=== PATIENT | female | born 1965 | race Caucasian/White ===

== ENCOUNTER 2020-08-09 04:39 | Emergency (ER) | payer BC | END 2020-08-09 05:39 | disposition home or self-care (01) | LOC: MADERS 04:39 | DX: F41.9 Anxiety disorder, unspecified (principal); R03.0 Elevated blood-pressure reading, without diagnosis of hypertension; E66.9 Obesity, unspecified | CPT/HCPCS: 99283 ==

== ENCOUNTER 2021-03-16 13:55 | Emergency (ER) | payer BC ==
[2021-03-16] MEDS ORDERED: Boostrix 0.5 ML (Tdap) VIAL ONE (14:30)
[2021-03-16] MEDS ORDERED: Amoxicillin/Potassium Clav 875 MG TAB ONE (14:30)
== END 2021-03-16 14:55 | disposition home or self-care (01) ==
LOC: MADERS 13:55
DX: S61.451A Open bite of right hand, initial encounter (principal); E66.9 Obesity, unspecified; W55.01XA Bitten by cat, initial encounter
CPT/HCPCS: 90471; 90715